=== PATIENT | male | born 1970 | race African-American/Black ===

== ENCOUNTER 2022-05-26 07:12 | Day surgery (SDC) | payer OTHER ==
[~2022-05-26] VITALS: Ht 172.7 cm; Wt 85.3 kg
[~2022-05-26 07:12] MED LIST: ACETAMINOPHEN325 MG PO; BUSPIRONE10 MG PO; EQL CALCIUM PO; FLUOXETINE20 MG PO; METAMUCIL28 % PO; NORVASC5 M1 PO; OMEPRAZOLE20 MG PO; SENNA-TABS8.6 MG PO; TAMSULOSIN HCL0.4 MG PO; VITAMIN PO
[2022-05-26 08:37] VITALS: BP 120/93
== END 2022-05-26 09:10 | disposition designated cancer center or children's hospital (05) | DRG 392 ==
LOC: ENDO 07:12 → ORM 08:00 → ENDO 08:00
PROVIDERS: ATTEND Surgery
PROC: 0DJD8ZZ Inspection of Lower Intestinal Tract, Via Natural or Artificial Opening Endoscopic (ICD-10-PCS; principal; 2022-05-26)
DX: R10.84 Generalized abdominal pain (principal); K52.9 Noninfective gastroenteritis and colitis, unspecified; K64.8 Other hemorrhoids; I10 Essential (primary) hypertension; F41.9 Anxiety disorder, unspecified; Z86.010 Personal history of colon polyps